=== PATIENT | male | born 1960 | race Caucasian/White ===

== ENCOUNTER 2018-03-26 19:54 | Emergency (ER) | payer BC ==
[~2018-03-26] VITALS: Ht 185.4 cm; Wt 88.5 kg
[2018-03-26 19:55] VITALS: Ht 185.4 cm; Wt 88.5 kg
[2018-03-26 20:42] LABS: BASOPHIL % 0.8 % (0-2); PLATELET COUNT 264 x10^3mcL (130-400); RED CELL DISTRIBUTION WIDTH 13.8 % (11.5-14.5)
[2018-03-26 20:49] LABS: CARBON DIOXIDE 25.5 mmol/L (21-32); CHLORIDE SERUM 104 mmol/L (98-107); GFR1 > 60 mL/min; GLUCOSE SERUM 130 mg/dL (74-106); POTASSIUM SERUM 3.7 mmol/L (3.5-5.1); SODIUM SERUM 139 mmol/L (136-145)
[2018-03-26 23:11] VITALS: BP 145/86
== END 2018-03-26 23:11 | disposition home or self-care (01) ==
LOC: ED 19:54
PROVIDERS: Emergency Medicine
DX: H81.399 Other peripheral vertigo, unspecified ear (principal); Z90.89 Acquired absence of other organs; R11.10 Vomiting, unspecified
CPT/HCPCS: J2405; J2765; J8597

== ENCOUNTER 2018-03-29 14:10 | Emergency (ER) | payer BC ==
[~2018-03-29] VITALS: Ht 185.4 cm; Wt 88.5 kg
[2018-03-29 14:18] VITALS: Ht 185.4 cm; Wt 88.5 kg
[2018-03-29 15:43] LABS: BASOPHIL % 0.4 % (0-2); PLATELET COUNT 258 x10^3mcL (130-400); RED CELL DISTRIBUTION WIDTH 13.7 % (11.5-14.5)
[2018-03-29 15:55] LABS: CALCIUM 8.6 mg/dL (8.5-10.1); CARBON DIOXIDE 25.7 mmol/L (21-32); CHLORIDE SERUM 107 mmol/L (98-107); GFR1 > 60 mL/min; GLUCOSE SERUM 94 mg/dL (74-106); POTASSIUM SERUM 3.9 mmol/L (3.5-5.1); SODIUM SERUM 143 mmol/L (136-145)
[2018-03-29 16:01] LABS: ALKALINE PHOSPHATASE 76 U/L (46-116); ALT/SGPT 40 U/L (16-63); AST/SGOT 83 U/L (15-37); BILIRUBIN TOTAL 0.28 mg/dL (0.20-1.00); TOTAL PROTEIN, SERUM 6.8 g/dL (6.4-8.2)
[2018-03-29 18:05] VITALS: BP 130/75
== END 2018-03-29 18:05 | disposition home or self-care (01) ==
LOC: ED 14:10
PROVIDERS: Emergency Medicine
DX: R42 Dizziness and giddiness (principal); R51 Headache; R11.2 Nausea with vomiting, unspecified; Z90.89 Acquired absence of other organs
CPT/HCPCS: J1885; J2765; J7030